=== PATIENT | male | born 1995 | race Caucasian/White ===

== ENCOUNTER 2023-01-04 22:00 | Emergency (ER) | payer MEDICAID, SELFPAY ==
[2023-01-04 22:08] VITALS: BP 180/108; PULSE 96; RESP 16; TEMP 36.7; O2SAT 98
[2023-01-05] MEDS: lidocaine 1% INJ 10 mL (per mL) 5 ML INTRADERMA (01:39)
[2023-01-05] MEDS: tetanus-dipt-pertussis 0.5 mL SDV IM (01:39)
[2023-01-05] MEDS: ondansetron 4 MG Tablet PO (02:13)
--- NOTE | 2023-01-05 02:20 | W.ED.EXTPRO ---
HPI - Extremity Problem General: Chief complaint: Extremity Injury, Upper Stated complaint: Left Hand Injury Time Seen by Provider: 01/05/23 01:23 Source: patient Mode of arrival: ambulatory Limitations: no limitations History of Present Illness: Patient presents to the emergency department today for evaluation treatment of laceration to his left hand. 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 Patient states he put some bandaging on it but, over the last several hours it has continued to bleed. Since he has not been able to get the bleeding stopped, he comes in for evaluation today. He also indicates he is unsure of his last tetanus immunization. Review of Systems General: Reports: 10 or more systems reviewed and unremarkable except in HPI and below Skin/Breast: Reports: new lesions (hand wound) Physical Exam Const: COMMON NORMALS: no acute distress, average body habitus and patient oriented x3 HENMT: COMMON NORMALS: normocephalic, atraumatic, hearing grossly normal bilaterally, Normal external nose present and moist oral mucous membranes HEAD & SCALP: normocephalic and atraumatic NOSE: Normal external nose present Eye: COMMON NORMALS: Equal, round and reactive pupils present, EOMs intact bilaterally and conjunctivae normal CONJUNCTIVA: Yes conjunctivae normal PUPIL: Yes Equal, round and reactive pupils present Neck/C-Spine: COMMON NORMALS: no JVD Lymph: LYMPHATIC: no lymphadenopathy noted Resp: COMMON NORMALS: normal respiratory effort, No retractions and No use of accessory muscles Cardio: COMMON NORMALS: no JVD, regular rate and regular rhythm RATE: regular rate RHYTHM: regular rhythm GI: COMMON NORMALS: Normal to inspection, nondistended, normoactive bowel sounds present : COMMON NORMALS: Yes no CVA tenderness BLADDER/KIDNEY EXAM: Yes no CVA tenderness Back/Pelvis: COMMON NORMALS: no CVA tenderness and thoraco-lumbar ROM normal Extremity: COMMON NORMALS: normal to inspection, full ROM and capillary refill normal Neuro: COMMON NORMALS: patient oriented x3 Psych: COMMON NORMALS: mental status grossly normal, Normal thought process present, cooperative, normal affect and activity/motor behavior normal THOUGHT PROCESS: Normal thought process present Skin: NARRATIVE SKIN EXAM: Patient has a flap-like laceration noted to the palmar aspect of his left hand. It is in the proximal and medial portion of the palm. There is a very slow ooze of bleeding. Course Vital Signs: Vital signs: Vital Signs Temperature 98.1 F 01/04/23 22:08 Pulse Rate 88 01/05/23 02:30 Respiratory Rate 18 01/05/23 02:30 Blood Pressure 180/108 01/04/23 22:08 Pulse Oximetry 99 01/05/23 02:30 Oxygen Delivery Me thod 01/04/23 22:08 MDM - Extremity (Nontraumatic) Medical Decision Making Patient presented to the emergency department today for evaluation and treatment of laceration sustained to the palmar aspect of his left hand. Patient's wound was anesthetized, cleaned, and repaired using 3 nonabsorbable sutures. With wound edge approximation and repair, bleeding had resolved. Patient's tetanus immunization was updated. Patient had a near vasovagal episode during the procedure which was temporarily stopped to provide him antinausea medication, and cold washcloths until the sensation resolved. Patient otherwise tolerated his procedure. Patient was given wound care instructions as well as suture care instructions. He is to have the sutures removed in approximately 10 days. 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 However, any concerns for sudden onset of redness, swelling, or discharge worrisome for infection needs to be seen and reevaluated immediately. Differential Diagnosis Likely cellulitis (Abrasion, laceration, puncture, need for tetanus immunization) Discharge Plan Discharge Patient Disposition: Home Clinical Impression: Laceration of hand, left Condition: Stable Discharge Orders: Discharge ED (Routine); Ordered 01/05/23 Ordered By: Lisy Prieto Discharge Diet: Usual diet Discharge Activity: Resume usual activity Patient Instructions: Care For Your Stitches (DC), Laceration (ED) Activity Restrictions/Additional Instructions: We were able to anesthetize, clean, and repair the wound to your hand. You received 3 nonabsorbable sutures which need to be removed in approximately 10 days. We recommend washing the wound once or twice a day with warm water and mild soap. We also recommend keeping it covered and bandaged to prevent it getting wet or soiled. If the bandaging were to get wet or soiled and needs to be removed, the wound be cleaned, and clean fresh bandaging reapplied. We updated your tetanus immunization today. Watch for any sudden swelling, sudden redness, or draining of a thick green or yellow material from your wound. If these occur you need to be seen and reevaluated. Coding Level of Care Code ED Analysis Engineer for Oswald Shepard
[2023-01-05 02:30] VITALS: PULSE 88; RESP 18; O2SAT 99
--- NOTE | 2023-01-14 14:13 | DCPLANNER ---
Addendum entered by Sara Siegel 01/22/23 07:54: Patient had a follow up appointment scheduled with Dr. Mullins at [facility] - patient did attend appointment Original Note: commercial development manager called patient due to no primary care physician - patient stated that he would like to get established with a primary care physician. commercial development manager called [facility], gave clinic patients information. A follow up appointment was scheduled for Saturday, January 21, [address]23 at 1:[address] Pearson. commercial development manager gave patient the appointment information.
== END 2023-01-05 02:31 | disposition home or self-care (01) ==
PROVIDERS: Emergency Provider Physician Assistant
DX: S61.412A Laceration without foreign body of left hand, initial encounter (principal); W26.0XXA Contact with knife, initial encounter; Z23 Encounter for immunization
CPT/HCPCS: 12001; 90471; 90715; 96372; 99283; Q0162

== ENCOUNTER → 2023-01-21 13:49 | Outpatient (BNVA) | payer BC, SELFPAY | PROVIDERS: PCP Family Medicine; Visit Provider Family Medicine | DX: F90.0 Attention-deficit hyperactivity disorder, predominantly inattentive type (principal); A69.20 Lyme disease, unspecified; F32.0 Major depressive disorder, single episode, mild | CPT/HCPCS: 80053; 80061; 85025 ==

== ENCOUNTER 2023-11-23 14:00 | Outpatient (CLI) | payer MEDICAID, SELFPAY | END 2023-11-23 14:01 | disposition home or self-care (01) | PROVIDERS: PCP Family Medicine; Visit Provider Family Medicine | DX: G47.30 Sleep apnea, unspecified (principal) | CPT/HCPCS: G0399 ==